=== PATIENT | male | born 1970 | race Caucasian/White ===

== ENCOUNTER 2022-07-22 12:54 | Outpatient (CLI) | payer SELFPAY ==
[2022-07-22 21:34] LABS: Albumin* 4.7 g/dL (3.3-5.0); Chloride* 93 mmol/L (96-114); Sodium* 131 mmol/L (135-149)
[2022-07-22 21:35] LABS: Potassium* 4.1 mmol/L (3.6-5.1)
[2022-07-22 21:36] LABS: Cholesterol* 289 mg/dL (90-199)
[2022-07-22 21:37] LABS: Alanine Aminotransferase* 35 U/L (4-50); Alkaline Phosphatase* 156 U/L (40-150); Aspartate Amino Transferase* 25 U/L (12-35); Blood Urea Nitrogen* 11 mg/dL (7-30); Calcium* 9.4 mg/dL (8.4-10.6); Carbon Dioxide* 26 mmol/L (20-32); Creatinine* 0.7 mg/dL (0.5-1.5); Estimated Glomerular Filt Rate 111 ml/min; Total Protein* 7.1 g/dL (6.0-8.3)
[2022-07-22 21:38] LABS: HDL Cholesterol* 38 mg/dL (>=40)
[2022-07-22 22:01] LABS: LDL Cholesterol Calculated 43 mg/dL (<100); Triglycerides* 1039 mg/dL (40-149)
[2022-07-22 22:05] LABS: Glucose* 601 mg/dL (60-115)
== END 2022-07-22 12:55 | disposition home or self-care (01) ==
PROVIDERS: PCP Family Medicine; Visit Provider Family Medicine
DX: Z00.00 Encounter for general adult medical examination without abnormal findings (principal); Z13.1 Encounter for screening for diabetes mellitus; Z13.6 Encounter for screening for cardiovascular disorders
CPT/HCPCS: 80053; 80061

== ENCOUNTER 2022-08-27 09:35 | Outpatient (CLI) | payer OTHER, SELFPAY ==
[2022-08-27 14:40] LABS: Chloride* 103 mmol/L (96-114)
[2022-08-27 14:41] LABS: Potassium* 4.8 mmol/L (3.6-5.1); Sodium* 140 mmol/L (135-149)
[2022-08-27 14:43] LABS: Carbon Dioxide* 29 mmol/L (20-32); Creatinine* 0.7 mg/dL (0.5-1.5); Estimated Glomerular Filt Rate 110 ml/min
[2022-08-27 14:44] LABS: Blood Urea Nitrogen* 15 mg/dL (7-30); Calcium* 9.7 mg/dL (8.4-10.6); Glucose* 162 mg/dL (60-115)
== END 2022-08-27 09:36 | disposition home or self-care (01) ==
LOC: FRMREF 09:36
PROVIDERS: PCP Family Medicine; Visit Provider Family Medicine
DX: Z01.818 Encounter for other preprocedural examination (principal); E11.9 Type 2 diabetes mellitus without complications
CPT/HCPCS: 80048

== ENCOUNTER 2022-09-01 12:07 | Day surgery (SDC) | payer OTHER, SELFPAY ==
[2022-09-01] VITALS (9 sets, daily range): BP systolic 109–130; BP diastolic 73–92; PULSE 72–95; RESP 14–16; TEMP 36.2–36.6; O2SAT 95–99; BMI 29.1
[2022-09-01] MEDS: LACTATED RINGERS 1000 ML 1,000 ML 100 ML IV (12:30)
[2022-09-01] MEDS: CEFAZOLIN 2 GM INJ IVP (13:35)
--- NOTE | 2022-09-01 13:58 | W.ANESCHARGE ---
Anesthesia Charges Start Date/Time Anesthesia Start Date: 09/01/22 Anesthesia Start Time: 13:20 Stop Date/Time Anesthesia Stop Date: 09/01/22 Anesthesia Stop Time: 15:00 Summary Emergency: No
[2022-09-01] MEDS: BUPIVACAINE 0.25% 30 ML 15 ML INJECTION (14:00)
[2022-09-01] MEDS: LIDOCAINE 0.5%-EPI 1:200,000 50 ML VIAL 15 ML INJECTION (14:00)
--- NOTE | 2022-09-01 14:42 | W.ANESCHARGE ---
Anesthesia Charges Start Date/Time Anesthesia Start Date: 09/01/22 Anesthesia Start Time: 13:20 Stop Date/Time Anesthesia Stop Date: 09/01/22 Anesthesia Stop Time: 15:00 Summary Emergency: No
--- NOTE | 2022-09-01 15:23 | PM.GSPRC ---
Operative Note Date of procedure: 09/01/22 Type of Procedure: 1. Open umbilical hernia repair with mesh. Procedure Description: After discussing the risks and benefits of the procedure, the patient signed informed consent.? The operative site was marked and the patient was brought to the operating room and placed on the operating table in supine position.? Care was taken to pad the patient's pressure points.?? The patient was then intubated by anesthesia.?? The operative site was then prepped and draped in the usual sterile fashion.? A time-out was then performed. Local anesthetic was injected at the surgical site. A curvilinear skin incision was made with a scalpel just below umbilicus. Excess thin skin was excised with a scalpel. Subcutaneous tissue was dissected with electrocautery down to the hernia sac and anterior fascia. The hernia sac was entered and examined from the inside. Omentum was incarcerated in the hernia sac. A dense adhesion was attaching the omentum to the hernia sac. This adhesion was taken down with Metzenbaum scissors. Hemostasis was achieved with cautery. The hernia sac was dissected off of the anterior fascia and subcutaneous fat around the fascial defect was dissected away from the fascial defect with cautery. I then developed preperitoneal space for mesh insertion. The hernia sac was then excised. The peritoneum of the hernia sac was then closed with a running 2-0 Vicryl sutures. The fascial defect was approximately 1.5 cm. A small [address]ex ST mesh patch was then inserted into preperitoneal space and secured to the fascia using 0-0 Neurolon interrupted stitches. I examined my closure and no defects were identified between the fascia and the mesh. Fascia was re-approximated over the mesh with a running 2-0 Vicryl stitch. Additional local anesthetic was injected into subcutaneous tissues. An umbilicus was tacked down with interrupted 3-0 Vicryl stitches. Subcutaneous fat was reapproximated with interrupted 2-0 sutures. Subdermal layer was closed with interrupted sutures using 3-0 Vicryl. Skin was closed with 4-0 Monocryl using subcuticular stitch. Steri strips were applied over the incision. I then placed a folded sterile 2 x 2 and 4x4 gauze over the incision and covered it with tape. All counts were correct at the end of the case. Patient tolerated the procedure well and was transferred to PACU without any complications. Anesthesia: GETA Surgeon: Myra Lopez MD Estimated blood loss (mL): 5 Condition: stable Disposition: PACU
== END 2022-09-01 16:02 | disposition home or self-care (01) ==
PROVIDERS: PCP Family Medicine; Visit Provider Surgery
PROC: (CPT 49587; principal; 2022-09-01 13:30)
DX: K42.0 Umbilical hernia with obstruction, without gangrene (principal)
CPT/HCPCS: 49587; 00830; C1781; J0690; J1100; J2250; J2405; J2704; J3010; J3490; J7120

== ENCOUNTER 2022-12-24 09:37 | Outpatient (CLI) | payer OTHER, SELFPAY | END 2022-12-24 09:38 | disposition home or self-care (01) | PROVIDERS: PCP Family Medicine; Visit Provider Family Medicine | DX: E78.5 Hyperlipidemia, unspecified (principal); E11.9 Type 2 diabetes mellitus without complications; E66.01 Morbid (severe) obesity due to excess calories; N52.9 Male erectile dysfunction, unspecified | CPT/HCPCS: 80053; 84403 ==